=== PATIENT | female | born 1945 | race Caucasian/White ===

== ENCOUNTER → 2017-01-16 | Outpatient (CLI) | payer OTHER | LOC: FIMAGING 12:42 | PROVIDERS: ATTEND Internal Medicine | DX: K59.00 Constipation, unspecified (principal); R14.0 Abdominal distension (gaseous); R11.0 Nausea; R10.9 Unspecified abdominal pain | CPT/HCPCS: G0463-PO ==

== ENCOUNTER 2017-02-01 16:54 | Emergency (ER) | payer OTHER ==
[2017-02-01 17:02] VITALS: TEMP 97.9
--- NOTE | 2017-02-01 17:18 | EDPHY ---
H & P Time Seen by Provider: 02/01/17 17:02 HPI/ROS: CHIEF COMPLAINT: Fall with head injury HISTORY OF PRESENT ILLNESS: Patient fell a week ago and sustained a right humerus fracture and is wearing her arm in a sling. At that time she went to [facility] and was diagnosed with a proximal humerus fracture which is currently being treated non operatively. She does have a history per her of multiple falls over the past 25 years they have been together. Today she was at home walking on the hallway when she made a left turn to go to the bathroom he heard a thud and found her face down in the hallway. She did not lose consciousness. She complains of some pain in her head and a little bit of her neck and in her left hip. Pain started after the fall and is mild to moderate. Pain in the right arm is been stable. No weakness or numbness in extremities. REVIEW OF SYSTEMS: Eye: no change in vision ENT: no sore throat Cardiac: no chest pain or syncope Pulmonary: no cough or SOB Abdomen: no vomiting, diarrhea, abdominal pain Musculoskeletal: HPI, no back pain. Skin: Multiple areas of ecchymosis including left forearm and right humerus. Neuro: HPI, no confusion Constitutional: no fever : no urinary symptoms A comprehensive 10 point review of systems is otherwise negative aside from elements mentioned in the history of present illness. PAST MEDICAL HISTORY: Includes hypercholesterolemia, hysterectomy, bladder surgery, depression. Social history: , here. General Appearance: Alert and conversant, cooperative. Eyes: No scleral icterus. Extraocular motion intact. ENT, Mouth: Normal mucous membranes. Respiratory: Normal respiratory effort, breath sounds equal, lungs are clear to auscultation. Cardiovascular: Regular rate and rhythm. Gastrointestinal: Abdomen is soft and non tender. Neurological: Alert and oriented x3. Normally conversant. Face symmetric, normal movement and sensation in all extremities. Skin: Bruising on the left forearm and over the right upper humerus. Bruising over the left forehead. Musculoskeletal: No cervical thoracic or lumbar spine tenderness. No hip pain on axial loading or rotation of either hip. She is able to stand and help transfer out of the wheelchair to the bed. Pelvis is stable. No extremity tenderness to palpation except for the right upper arm. Right hand has normal motor sensory and radial pulse. Psychiatric: Not agitated. Emergency Department course/MDM: Plan for CT head and C-spine, x-rays of both hips and the right humerus. Pain is stable, additional pain medication declined. 1825: Results discussed. Possibility of admission for PT and OT and rehab evaluation discussed. Patient and her are adamant that they would like to go home. They feel she is safe and he can adequately assist her with her daily activities. They decline admission or any type hospitalization and request to be discharged unless she has new injury documented today which would require an inpatient evaluation. Smoking Status: Never smoked Constitutional: Initial Vital Signs Temperature (C) 36.6 C 02/01/17 16:58 Heart Rate 95 02/01/17 16:58 Respiratory Rate 18 02/01/17 16:58 Blood Pressure 169/69 H 02/01/17 16:58 O2 Sat (%) 95 02/01/17 16:58 O2 Delivery Mode Room Air Allergies/Adverse Reactions: No Known Allergies Allergy (Unverified 02/01/17 16:57) Home Medications: Medication Instructions Recorded Unobtainable 02/01/17 Medical Decision Making - Diagnostics Imaging Results: Imaging Impressions Cervical Spine CT 02/01/17 17:15 Impression: 1. Left frontal lateral scalp hematoma, with no acute intracranial abnormality. 2. Senescent features with stents of chronic white matter changes consistent with either chronic microvascular ischemic gliosis or prior demyelination. UNENHANCED CT SCAN OF THE CERVICAL SPINE TECHNIQUE: A multidetector unenhanced helical CT scan was obtained from the clivus caudally through the upper thoracic spine, with images reformatted at 1.25 mm increments, and are reviewed in soft tissue, bone, and lung windows. Parasagittal and paracoronal reconstructed images are reviewed on the workstation. The DFOV is 16.0 cm. A dose reduction protocol was used. COMPARISON STUDY: No prior cervical spine imaging. FINDINGS: The bones are demineralized. There is trace C3 anterolisthesis above C4, trace C4 anterolisthesis above C5, and trace C5 posterolisthesis above C6, likely degenerative in etiology. The cervical vertebral body heights are reasonably well-maintained. There is some minor ventral concavity at the C5 level, within the context of ventral traction osteophytes and degenerative disk space narrowing. There is no acute fracture, or facet malalignment identified. The interspinous distances are normal. The craniocervical junction is normal. The predental space, and the atlantoaxial lateral mass alignment is normal. There is some ligamentous calcification posterior to the dens, however there is an adequate AP canal diameter. The base and the tip of the dens are normal. There is no prevertebral hematoma, or epidural hematoma identified. The prevertebral soft tissues are normal. The lung apices are notable for some minimal fibrosis. The visualized superior mediastinal structures are unremarkable. On the javascript developer topogram, there is a proximal right humeral surgical neck fracture extending to the greater tuberosity, seen to better advantage on dedicated humerus radiographs. At the C2-C3 level, there is no significant central canal stenosis or neural foraminal impingement. Mild right-sided facet hypertrophy is seen. At the C3-C4 level, there is mild bilateral facet hypertrophy, left greater than right. Uncovertebral degenerative change on the left results in mild left neural foraminal narrowing. The right neural foramen and the central canal are patent. At the C4-C5 level, there is degenerative disk space narrowing. There is moderate bilateral facet hypertrophy with uncovertebral degenerative change, however the neural foramina still remain relatively patent. The central canal is also patent. At the C5-C6 level, there is degenerative disk space narrowing. There is minor neural foraminal narrowing, and the central canal remains patent. At the C6-C7 level, there is no significant central canal or neural foraminal stenosis. At the C7-T1 level, there is mild disk space narrowing. There is no significant central canal narrowing. The neural foramina remain relatively patent. IMPRESSION: Degenerative features, with no acute cervical osseous abnormality identified. If there is further clinical concern regarding the patient's symptoms, correlative MR imaging could be considered, if otherwise not contraindicated. Findings and recommendations were discussed with ABIGAIL MATTHEWS MD at 18:44, on 06/2017. Head CT 02/01/17 17:15 Impression: 1. Left frontal lateral scalp hematoma, with no acute intracranial abnormality. 2. Senescent features with stents of chronic white matter changes consistent with either chronic microvascular ischemic gliosis or prior demyelination. UNENHANCED CT SCAN OF THE CERVICAL SPINE TECHNIQUE: A multidetector unenhanced helical CT scan was obtained from the clivus caudally through the upper thoracic spine, with images reformatted at 1.25 mm increments, and are reviewed in soft tissue, bone, and lung windows. Parasagittal and paracoronal reconstructed images are reviewed on the workstation. The DFOV is 16.0 cm. A dose reduction protocol was used. COMPARISON STUDY: No prior cervical spine imaging. FINDINGS: The bones are demineralized. There is trace C3 anterolisthesis above C4, trace C4 anterolisthesis above C5, and trace C5 posterolisthesis above C6, likely degenerative in etiology. The cervical vertebral body heights are reasonably well-maintained. There is some minor ventral concavity at the C5 level, within the context of ventral traction osteophytes and degenerative disk space narrowing. There is no acute fracture, or facet malalignment identified. The interspinous distances are normal. The craniocervical junction is normal. The predental space, and the atlantoaxial lateral mass alignment is normal. There is some ligamentous calcification posterior to the dens, however there is an adequate AP canal diameter. The base and the tip of the dens are normal. There is no prevertebral hematoma, or epidural hematoma identified. The prevertebral soft tissues are normal. The lung apices are notable for some minimal fibrosis. The visualized superior mediastinal structures are unremarkable. On the javascript developer topogram, there is a proximal right humeral surgical neck fracture extending to the greater tuberosity, seen to better advantage on dedicated humerus radiographs. At the C2-C3 level, there is no significant central canal stenosis or neural foraminal impingement. Mild right-sided facet hypertrophy is seen. At the C3-C4 level, there is mild bilateral facet hypertrophy, left greater than right. Uncovertebral degenerative change on the left results in mild left neural foraminal narrowing. The right neural foramen and the central canal are patent. At the C4-C5 level, there is degenerative disk space narrowing. There is moderate bilateral facet hypertrophy with uncovertebral degenerative change, however the neural foramina still remain relatively patent. The central canal is also patent. At the C5-C6 level, there is degenerative disk space narrowing. There is minor neural foraminal narrowing, and the central canal remains patent. At the C6-C7 level, there is no significant central canal or neural foraminal stenosis. At the C7-T1 level, there is mild disk space narrowing. There is no significant central canal narrowing. The neural foramina remain relatively patent. IMPRESSION: Degenerative features, with no acute cervical osseous abnormality identified. If there is further clinical concern regarding the patient's symptoms, correlative MR imaging could be considered, if otherwise not contraindicated. Findings and recommendations were discussed with ABIGAIL MATTHEWS MD at 18:44, on 06/2017. Humerus X-Ray 02/01/17 17:15 Impression: Acute fracture involving the proximal right humerus, as-detailed. Hip X-Ray 02/01/17 17:16 Impression: There is no acute osseous abnormality identified. If there is a high clinical concern regarding an occult fracture, CT or MR imaging could be considered. Differential Diagnosis: Differential diagnosis considered for head injury including but not limited to concussion, skull fracture, intraparenchymal contusion, subarachnoid, subdural and epidural hematoma. Departure - Departure Disposition: Home, Routine, Self-Care Clinical Impression: Right humeral fracture Qualifiers: Encounter type: subsequent encounter Humerus Location: proximal Fracture type: closed Fracture morphology: unspecified fracture morphology Fracture healing: with routine healing Qualified Code(s): S42.201D - Unspecified fracture of upper end of right humerus, subsequent encounter for fracture with routine healing Head injury Qualifiers: Encounter type: initial encounter Qualified Code(s): S09.90XA - Unspecified injury of head, initial encounter Condition: Good Instructions: Arm Fracture in Adults (ED), Head Injury (ED) Referrals: Jeannine Grajeda MD [Primary Care Provider] - As per Instructions
[2017-02-01 19:18] VITALS: BP 159/93; PULSE 88; RESP 14; O2SAT 96
== END 2017-02-01 19:18 | disposition home or self-care (01) ==
DX: S09.90XA Unspecified injury of head, initial encounter (principal); S42.201A Unspecified fracture of upper end of right humerus, initial encounter for closed fracture; W19.XXXA Unspecified fall, initial encounter; Y92.009 Unspecified place in unspecified non-institutional (private) residence as the place of occurrence of the external cause; Y99.8 Other external cause status; Y93.01 Activity, walking, marching and hiking

== ENCOUNTER → 2017-03-01 | Outpatient (CLI) | payer OTHER | LOC: BMCIMAGING 08:20 | PROVIDERS: ATTEND Internal Medicine | DX: R10.2 Pelvic and perineal pain (principal); M25.552 Pain in left hip ==

== ENCOUNTER → 2017-03-02 | Outpatient (CLI) | payer OTHER | LOC: BMCIMAGING 15:11 | PROVIDERS: ATTEND Internal Medicine | DX: S89.92XA Unspecified injury of left lower leg, initial encounter (principal) ==

== ENCOUNTER → 2017-06-19 | Outpatient (CLI) | payer OTHER | LOC: FIMAGING 15:50 | PROVIDERS: ATTEND Internal Medicine | DX: M79.605 Pain in left leg (principal); R22.42 Localized swelling, mass and lump, left lower limb | CPT/HCPCS: G0463-PO ==

== ENCOUNTER 2017-11-22 14:31 | Observation (INO) | payer OTHER ==
--- NOTE | 2017-11-22 15:41 | EDPHY ---
H & P Smoking Status: Never smoked Time Seen by Provider: 11/22/17 15:04 HPI/ROS: CHIEF COMPLAINT: Low back pain after fall HISTORY OF PRESENT ILLNESS: 72-year-old female presents to the emergency department by private vehicle complaining of severe pain in her low back and buttock area. The patient was camping in [place] and slipped on some gravel in a parking lot and landed on her buttock. She does not think that she hit her head or lost consciousness. She denies a headache. Denies neck pain. Denies chest pain or difficulty breathing. She denies abdominal pain although she states that the pain is been getting worse and making her feel nauseous. She states that the fall was 10 days ago and because they were camping they decided to wait until they came back to [place] for evaluation. Denies radicular symptoms in her lower legs. She denies any presyncopal symptoms prior to her fall. REVIEW OF SYSTEMS: Constitutional: No fever, no chills. Eyes: No double or blurry vision. ENT: No sore throat. Respiratory: No cough, no shortness of breath. Cardiac: No chest pain. Gastrointestinal: No abdominal pain, vomiting or diarrhea. Genitourinary: No dysuria. Musculoskeletal: Back pain. No neck pain. Skin: No rashes. Neurological: No headache. (Hellen Eric) Past Medical/Surgical History: Depression, hysterectomy, bladder surgery, arm fracture (Hellen Eric) Social History: (Hellen Eric) Physical Exam: General Appearance: Alert, no distress. Mentating normally and answering questions appropriately. No visible signs of trauma to her head. at bedside. Eyes: Pupils equal and round. Extraocular motions are all intact. ENT: Mouth: Mucous membranes moist. No hemotympanum. No dental injury or malocclusion. Respiratory: No wheezing, rhonchi, or rales, lungs are clear to auscultation. Cardiovascular: Regular rate and rhythm. Gastrointestinal: Abdomen is soft and nontender, no masses, no rebound or guarding, bowel sounds normal. Neurological: Alert and oriented x 3, cranial nerves II through XII grossly intact Skin: Warm and dry, no rashes. Musculoskeletal: Nontender to palpate along the cervical or thoracic spine. She has some mild pain with palpation along the lower lumbar spine and along her sacral spine. She has pain with palpation especially over the sacroiliac joints bilaterally perhaps a bit worse on her right side compared with her left. Extremities: Patient has pain in her lower back with movement of her legs. She is able to lift her left and right leg to about 30 degrees before she is limited by pain in her low back. No pain with external or internal rotation of her right or left hip. Psychiatric: Patient is oriented X 3, there is no agitation. (Hellen Eric) Constitutional: Initial Vital Signs Temperature (C) 36.6 C 11/22/17 14:36 Heart Rate 86 11/22/17 14:36 Respiratory Rate 16 11/22/17 14:36 Blood Pressure 129/73 H 11/22/17 14:36 O2 Sat (%) 96 11/22/17 14:36 O2 Delivery Mode Room Air Allergies/Adverse Reactions: No Known Allergies Allergy (Unverified 02/01/17 16:57) Home Medications: Medication Instructions Recorded Aspirin 11/22/17 Calcium 11/22/17 Ocuvite Adult 50 Plus Softgel 11/22/17 Pravastatin Sodium 11/22/17 Stelazine 1MG (*) 11/22/17 Zoloft 100mg (*) 11/22/17 Medical Decision Making - Diagnostics Imaging: Discussed imaging studies w/ transportation maintenance supervisor Radiologist, I viewed and interpreted images myself - Diagnostics Imaging Results: Imaging Impressions Lumbar Spine X-Ray 11/22/17 15:35 Impression: 1. No definite acute findings in the lumbar spine. 2. Grossly stable L1 and L2 compression fractures. Pelvis X-Ray 11/22/17 15:35 Impression: Negative. 2. Sacrum and Coccyx, 3 views History: Pain post fall Findings: No fracture or malalignment identified. There is degenerative narrowing of the L4-L5 disk space. There is dense atherosclerotic calcification of the distal abdominal aorta. Impression: Nothing acute identified. Sacrum and Coccyx X-Ray 11/22/17 15:35 Impression: Negative. 2. Sacrum and Coccyx, 3 views History: Pain post fall Findings: No fracture or malalignment identified. There is degenerative narrowing of the L4-L5 disk space. There is dense atherosclerotic calcification of the distal abdominal aorta. Impression: Nothing acute identified. Pelvis CT 11/22/17 16:37 Impression: 1. Nondisplaced left sacral fracture. 2. Osteopenia. 3. Constipation. 4. Additional findings, as above. Findings discussed with Yifan Mazariegos M.D., on November 22, 2017 at 1726. ED Course/Re-evaluation: 72-year-old female presents after mechanical fall 10 days ago. She complains of severe pain in her lower back and buttock area. Initial plain film x-rays of the lumbar spine, sacrum and coccyx, and pelvis were all negative for fracture. The patient required a 2 person assist to get her to the commode. Patient is still unable to walk without severe pain. I discussed the x-rays with the radiologist, Dr. Isauro Matson, and he recommend CT scan without contrast of the pelvis to evaluate for possible sacral insufficiency fracture. Multiple attempts were made to establish IV access. The patient was ultimately given 1 Percocet p. O. In the emergency department. Since the patient is having difficulty getting around requiring assistance to go to the bathroom and having severe pain in her buttock and low back, I recommended admission to the hospital. The patient would like to be admitted to the hospital. The at bedside however does not feel that she needs admission. I went back to talk to the patient after CT scan was obtained of the pelvis. The patient and agree that she needs admission to the hospital for pain control and further evaluation. She required 2 person assist to get her to the commode. I spoke with Dr. Jeremy Mendes, hospitalist, who will admit this patient to the hospital. Orthopedic surgery has been paged. I talked with Kalyani, on air director PA with ortho, who recommended WBAT. (Hellen Eric) 8:14 p.m. I discussed the case with Dr. Ríos who will consult. (Yifan Mazariegos) Differential Diagnosis: Back pain including but not limited to muscular pain, herniated disc, spine fracture, intra-abdominal causes and urinary tract infection. (Hellen Eric) - Data Points Medications Given: Discontinued Medications Morphine Sulfate (Morphine) 2 mg IVP EDNOW ONE Stop: 11/22/17 15:38 Last Admin: 11/22/17 16:05 Dose: Not Given Oxycodone/Acetaminophen (Percocet 5/325) 1 tab PO EDNOW ONE Stop: 11/22/17 15:59 Last Admin: 11/22/17 15:58 Dose: 1 tab Departure - Departure Disposition: [facility] Clinical Impression: Low back pain Qualifiers: Chronicity: acute Back pain laterality: midline Sciatica presence: without sciatica Qualified Code(s): M54.5 - Low back pain Condition: Good
[2017-11-22] MEDS ORDERED: OXYCODONE/APAP 5/325 TAB ONE (15:56)
[2017-11-22] MEDS ORDERED: OXYCODONE/APAP 5/325 TAB PO ONE (15:58)
[2017-11-22 17:28] LABS: PLATELET COUNT 245 10^3/uL (150-400)
[2017-11-22] MEDS ORDERED: ONDANSETRON 4 MG/2 ML VIAL IVP PRN (17:58)
[2017-11-22] MEDS ORDERED: ONDANSETRON DISINTEGRATING 4 MG TAB PO PRN (17:58)
[2017-11-22] MEDS ORDERED: oxyCODONE IR 5 MG TAB PO PRN (17:58)
[2017-11-22] MEDS ORDERED: ACETAMINOPHEN 325 MG TAB PO PRN (17:58)
[2017-11-22] MEDS ORDERED: D5W 1/2 NS W/ 20 KCl/L 1,000 ML IV SCH (18:00)
[2017-11-22] MEDS ORDERED: DOCUSATE SODIUM 100 MG CAP PO PRN (19:44)
[2017-11-22] MEDS ORDERED: LACTULOSE 20 GM/30 ML UDCUP PO PRN (19:46)
[2017-11-22] MEDS ORDERED: MAGNESIUM HYDROXIDE 30 ML UDCUP PO PRN (19:46)
[2017-11-22] MEDS ORDERED: BISACODYL 10 MG SUPP PR PRN (19:46)
[2017-11-22] MEDS ORDERED: POLYETHYLENE GLYCOL 3350 17 GM PKT PO PRN (19:46)
--- NOTE | 2017-11-22 19:50 | PDGENHP ---
History and Physical - Chief Complaint Acute sacral pain - History of Present Illness Primary care provider: Dr. Grajeda HPI: 72-year-old female presenting with acute pain characterized as sharp, located along the sacrum posteriorly, exacerbated by ambulation, with onset of symptoms approximately 10 days ago after experiencing well as described as a mechanical fall. The patient reports that she fell posteriorly and landed on her buttocks, and did not experience any precipitating palpitations, lightheadedness, syncope. She reports was purely mechanical. She reports that she experienced subsequent pain located in the aforementioned area as well as some associated ecchymoses, but she continued to ambulate on a limited basis thereafter. She and her were camping down in [facility] and she was spending most of the time in a seated position thereafter, getting out of truck cab only for meals and to sleep in the camper that they were pulling. Over the past couple days, her ambulatory abilities have declined, and the duration of her symptom of ambulatory pain has been increasing. She reports that the pain has been somewhat alleviated by the Percocet she received in the emergency department. The patient's does not believe that he is able to safely help her navigate at home at this time. History Information - Allergies/Home Medication List Allergies/Adverse Reactions: No Known Allergies Allergy (Unverified 02/01/17 16:57) Home Medications: Docusate Sodium [Colace 100 MG (*)] 100 mg PO BID PRN 11/22/17 [Last Taken 11/22 09:00] Herbals/Supplements -Info Only 1 ea PO DAILY 11/22/17 [Last Taken 11/22/17] Pravastatin Sodium [Pravachol] 80 mg PO HS 11/22/17 [Last Taken 11/21/17] Sertraline HCl [Zoloft 100mg (*)] 200 mg PO DAILY 11/22/17 [Last Taken 11/22/17] Trifluoperazine HCl [Stelazine 2MG (*)] 2 mg PO HS 11/22/17 [Last Taken 11/21/17 ] I have personally reviewed and updated: family history, medical history, social history, surgical history - Past Medical History Additional medical history: Chronic, recurrent mechanical falls resulting in closed head injuries and orthopedic fractures, most recently a humerus fracture. Hyperlipidemia. Depression - Surgical History Additional surgical history: Hysterectomy. Bladder surgery - Family History Additional family history: No family history of sudden cardiac or syncope or seizures - Social History Smoking Status: Never smoked Alcohol Use: None Drug Use: None Additional social history: Normally independent in ADLs comma recently on a camping trip with her in [facility] Review of Systems Review of Systems: ROS: 10pt was reviewed & negative except for what was stated in HPI & below Muscolosketal: Reports: other (Buttock pain) Physical Exam Physical Exam: Temp Pulse Resp BP Pulse Ox 37.1 C 69 12 156/81 H 95 11/22/17 19:25 11/22/17 19:25 11/22/17 19:25 11/22/17 19:25 11/22/17 19:25 Constitutional: no apparent distress, appears nourished, uncomfortable Eyes: PERRL, anicteric sclera, EOMI Ears, Nose, Mouth, Throat: moist mucous membranes, hearing normal, ears appear normal, no oral mucosal ulcers Cardiovascular: regular rate and rhythym, no murmur, rub, or gallop, No edema Respiratory: no respiratory distress, no rales or rhonchi, clear to auscultation Gastrointestinal: normoactive bowel sounds, soft, non-tender abdomen, no palpable masses, No distension Genitourinary: no bladder fullness, no bladder tenderness Musculoskeletal: other (Pain elicited in her posterior sacrum with active straight leg raise approximately 20 degrees bilaterally, passive straight leg raise approximately 30 degrees on the left, 45-60 degrees on the right) Neurologic: AAOx3, sensation intact bilaterally, No weakness (Motor strength 5/ 5 distal bilateral lower extremities) Psychiatric: not anxious, not encephalopathic, flat affect, No agitated Lab Data & Imaging Review 11/22/17 17:15 11/22/17 17:15 WBC 10.48 10^3/uL (3.80-9.50) H 11/22/17 17:15 RBC 4.63 10^6/uL (4.18-5.33) 11/22/17 17:15 Hgb 14.2 g/dL (12.6-16.3) 11/22/17 17:15 Hct 41.8 % (38.0-47.0) 11/22/17 17:15 MCV 90.3 fL (81.5-99.8) 11/22/17 17:15 MCH 30.7 pg (27.9-34.1) 11/22/17 17:15 MCHC 34.0 g/dL (32.4-36.7) 11/22/17 17:15 RDW 12.8 % (11.5-15.2) 11/22/17 17:15 Plt Count 245 10^3/uL (150-400) 11/22/17 17:15 MPV 11.0 fL (8.7-11.7) 11/22/17 17:15 Neut % (Auto) 68.7 % (39.3-74.2) 11/22/17 17:15 Lymph % (Auto) 16.4 % (15.0-45.0) 11/22/17 17:15 [place] % (Auto) 13.0 % (4.5-13.0) 11/22/17 17:15 Eos % (Auto) 1.0 % (0.6-7.6) 11/22/17 17:15 Baso % (Auto) 0.5 % (0.3-1.7) 11/22/17 17:15 Nucleat RBC Rel Count 0.0 % (0.0-0.2) 11/22/17 17:15 Absolute Neuts (auto) 7.21 10^3/uL (1.70-6.50) H 11/22/17 17:15 Absolute Lymphs (auto) 1.72 10^3/uL (1.00-3.00) 11/22/17 17:15 Absolute Monos (auto) 1.36 10^3/uL (0.30-0.80) H 11/22/17 17:15 Absolute Eos (auto) 0.10 10^3/uL (0.03-0.40) 11/22/17 17:15 Absolute Basos (auto) 0.05 10^3/uL (0.02-0.10) 11/22/17 17:15 Absolute Nucleated RBC 0.00 10^3/uL (0-0.01) 11/22/17 17:15 Immature Gran % 0.4 % (0.0-1.1) 11/22/17 17:15 Immature Gran # 0.04 10^3/uL (0.00-0.10) 11/22/17 17:15 Sodium 140 mEq/L (135-145) 11/22/17 17:15 Potassium 3.5 mEq/L (3.5-5.2) 11/22/17 17:15 Chloride 108 mEq/L (97-110) 11/22/17 17:15 Carbon Dioxide 22 mEq/l (22-31) 11/22/17 17:15 Anion Gap 10 mEq/L (8-16) 11/22/17 17:15 BUN 15 mg/dL (7-23) 11/22/17 17:15 Creatinine 0.7 mg/dL (0.6-1.0) 11/22/17 17:15 Estimated GFR > 60 11/22/17 17:15 Glucose 97 mg/dL (70-100) 11/22/17 17:15 Calcium 10.0 mg/dL (8.5-10.4) 11/22/17 17:15 Visualized and Interpreted imaging results: Yes Interpretation: Pelvic CT demonstrating nondisplaced left sacral fracture with osteopenia and constipation Assessment & Plan Assessment: 72-year-old female presents with acute sacral fracture status post mechanical fall Plan: 1. Sacral fracture. Acute, left-sided nondisplaced, at risk in the setting of osteopenia and secondary to trauma -further workup indicated with vitamin-D level, calcium level, outpatient DEXA scan recommended to fully treat suspected osteopenia versus osteoporosis and reduce patient's risk of fractures moving forward -I discussed the case with Hellen Ortiz, emergency department provider, she has reported to me that Orthopedics will be consulted, and review of her notes demonstrates that she has spoken with orthopedic VIDHI Graves, recommends weight -bearing as tolerated, Dr. Truong will consult in a.m. -orthopedic consultation will be particularly valuable for this patient her who are very concerned about ambulatory recommendations and how patient should be cared for over the next 4-6 weeks while she is attempting to recover from this injury -pain management as needed with high-dose Tylenol, as needed oxycodone, initiate with low-dose given her sensitivity to pain medications -physical and occupational therapy with case management assistance to arrive at a safe discharge plan tomorrow, unable to arrive at 1 in the emergency department this evening 2. Constipation. Present on CT, most likely secondary to immobility, initiate scheduled bowel regiment 3. Hypokalemia. Likely secondary to poor oral intake, IV fluids overnight, recheck in a.m. 4. Depression. Chronic, continue home medication 5. Recurrent mechanical falls. Reviewed outside records including 02/01/[address] Ralph Gonsalez, he reports the patient experienced a mechanical fall resulting in a closed head injury, and the patient has had other falls as outlined above -recommend the patient not only follow up closely with her primary care provider but establish a regular outpatient physical therapy relationship to continue working on balance, stretching, mobility, as the patient's risk of falls will only increase with a age and her risk of resulting in a major fracture or complication will only increase Diet. Regular Prophylaxis. High risk patient, Lovenox 40, SCDs overnight Code. Full Disposition. Anticipated discharge is 11/23, pending further evaluations as outlined above, safe discharge plan accomplish.
[2017-11-22] MEDS: oxyCODONE IR 5 MG TAB PO PRN (20:18)
[2017-11-22] MEDS ORDERED: PRAVASTATIN SODIUM 40 MG TAB PO SCH (21:00)
[2017-11-22] MEDS ORDERED: NON-FORMULARY NEW DRUG (Pravastatin Sodium [Pravachol] 80 MG) PO SCH (21:00)
[2017-11-22] MEDS ORDERED: TRIFLUOPERAZINE HCL 2 MG TAB PO SCH (21:00)
[2017-11-22] MEDS: SENNOSIDES/DOCUSATE SODIUM TAB PO SCH (22:04)
[2017-11-22] MEDS: CALCIUM CARB W/VIT D 500 MG TAB PO SCH (22:04)
[2017-11-23] MEDS: oxyCODONE IR 5 MG TAB PO PRN ×4 (02:20→14:18)
[2017-11-23 04:29] LABS: PLATELET COUNT 229 10^3/uL (150-400)
[2017-11-23 07:33] VITALS: RESP 18; TEMP 98.7
[2017-11-23] MEDS: CALCIUM CARB W/VIT D 500 MG TAB PO SCH (08:01)
[2017-11-23] MEDS: SENNOSIDES/DOCUSATE SODIUM TAB PO SCH (08:01)
[2017-11-23] MEDS ORDERED: ENOXAPARIN 40 MG/0.4 ML SYR SC SCH (09:00)
[2017-11-23] MEDS ORDERED: SERTRALINE HCL 100 MG TAB PO SCH (09:00)
[2017-11-23] MEDS ORDERED: Herbals/Supplements -Info Only PO SCH (09:00)
[2017-11-23 11:09] VITALS: BP 138/78; PULSE 74; O2SAT 95
--- NOTE | 2017-11-23 15:19 | ASMTCASEMG ---
Living Arrangements What is your living Answers: Alone arrangement? Who do you live with? Type Of Residence What kind of residence do Answers: House you live in? Discharge Plan Comments Coordination Status Comments Notes: Pts case discussed in morning rounds. Pt is a 72 y/o man admitted for lower back pain after a fall. Therapies have been ordered. OT is recommending HC with home 24hr supervision. Awaiting recommendation from PT. Needs are TBD at this time. CM to follow. Plan: TBD Date Signed: 11/23/2017 03:19 PM Electronically Signed By:ALLYSON Lozano
--- NOTE | 2017-11-23 15:29 | HOSPPROG ---
Hospitalist Progress Note Assessment/Plan: 72 yo F w fall, sacral fx did ok w pt non operative home today outpt osteoporosis eval Subjective: anxious for dc Objective: Vital Signs Temp Pulse Resp BP Pulse Ox 37.1 C 74 18 138/78 H 95 11/23/17 07:31 11/23/17 11:01 11/23/17 07:31 11/23/17 11:01 11/23/17 11:01 Laboratory Results 11/23/17 03:17 11/23/17 03:17 11/22/17 11/23/17 11/24/17 05:59 05:59 05:59 Intake Total 700 480 Output Total 400 350 Balance 300 130 - Physical Exam Constitutional: no apparent distress, appears nourished Eyes: PERRL, anicteric sclera Ears, Nose, Mouth, Throat: moist mucous membranes, hearing normal Cardiovascular: regular rate and rhythym, no murmur, rub, or gallop Respiratory: no respiratory distress, no rales or rhonchi Gastrointestinal: normoactive bowel sounds, soft, non-tender abdomen Genitourinary: no bladder fullness, No palomares in urethra Skin: warm Musculoskeletal: full muscle strength Neurologic: AAOx3 ICD10 Worksheet Patient Problems: Problems Problem Status Onset Low back pain Acute
--- NOTE | 2017-11-23 17:05 | GDS ---
[f rep st] DISCHARGE SUMMARY DISCHARGE DIAGNOSES: 1. Sacral fracture. 2. Osteoporosis. HOSPITAL COURSE: Please see admission history and physical by Dr. Doug Mendes. Patient juan her with pain in her coccyx after a fall that happened 10 days prior while camping. It was worse wi th walking. She had a pelvis CT showing constipation and nondisplaced left sacral fracture. She was also noted to have osteopenia. She was seen by PT and OT, who felt the patient required PT. She wa s discharged home. They declined home PT and said they had a physical therapist they wished to visit . She was given a limited prescription for narcotics and otherwise her pain medications were continu ed. /[id number]/MODL
== END 2017-11-23 16:25 | disposition home or self-care (01) ==
LOC: F2W 19:18
PROVIDERS: ADMIT Internal Medicine; ATTEND Internal Medicine
DX: S32.10XA Unspecified fracture of sacrum, initial encounter for closed fracture (principal); W01.0XXA Fall on same level from slipping, tripping and stumbling without subsequent striking against object, initial encounter; Y93.89 Activity, other specified; F32.9 Major depressive disorder, single episode, unspecified; M85.89 Other specified disorders of bone density and structure, multiple sites; E78.5 Hyperlipidemia, unspecified; R29.6 Repeated falls; K59.00 Constipation, unspecified
CPT/HCPCS: 72100; 72170; 72192; 72220; 97161; 97165; 97535; 99285; G0378; G8978; G8979; G8987; G8988; J1650; J2270